=== PATIENT | male | born 1950 | race African-American/Black ===

== ENCOUNTER → 2016-07-17 | Outpatient (CLI) | payer OTHER | LOC: OD 17:03 | PROVIDERS: ATTEND Radiology Radiation Oncology | DX: C61 Malignant neoplasm of prostate (principal) | CPT/HCPCS: 36415; 84153 ==

== ENCOUNTER → 2017-01-17 | Outpatient (CLI) | payer OTHER | LOC: OD 12:46 | PROVIDERS: ATTEND Radiology Radiation Oncology | DX: C61 Malignant neoplasm of prostate (principal) | CPT/HCPCS: 36415; 84153 ==

== ENCOUNTER → 2018-01-15 | Outpatient (CLI) | payer OTHER | LOC: OD 13:39 | PROVIDERS: ATTEND Radiology Radiation Oncology | DX: C61 Malignant neoplasm of prostate (principal) | CPT/HCPCS: 36415; 84153 ==

== ENCOUNTER → 2019-02-02 | Outpatient (CLI) | payer OTHER, MEDICARE | LOC: OD 13:21 | PROVIDERS: ATTEND Radiology Radiation Oncology | DX: C61 Malignant neoplasm of prostate (principal) | CPT/HCPCS: 36415; 84153 ==

== ENCOUNTER → 2020-05-24 | Day surgery (SDC) | payer MEDICARE, OTHER ==
[~2020-05-24] MED LIST: BESIFLOXACIN HCL 0.6% OPH SUSP 5 ML BOTTLE OS PRN; CHONDR SU A NA/HYALUR INTRAOC KIT (SURGICARE) ONE; CYCLOPENTOLATE 0.2%/PHENYLEPHRINE 1% OPH SOLN 2 ML OS PRN; DORZOLAMIDE HCL 2%/TIMOLOL MALEAT 0.5% OPH SOLN 10 ML OS PRN; EPINEPHRINE INJ/PF 1 MG/1 ML AMPULE ONE; KETOROLAC TROMETHAMINE 0.45% 4 DROP/0.4 ML DROPERETTE OS PRN; LIDOCAINE 1%/PHENYLEPHRINE 1.5% 1 ML VIAL ONE; MIDAZOLAM 2 MG/2 ML INJ ONE; PREDNISOLONE ACETATE 1% OPH SUSP 5 ML OS PRN; TETRACAINE HCL 0.5% OPH SOLN 4 ML OS PRN; TROPICAMIDE 1% OPH SOLN 15 ML OS PRN
== END ==
LOC: SC 09:59
PROVIDERS: ATTEND Ophthalmology
DX: Z53.9 Procedure and treatment not carried out, unspecified reason (principal)
CPT/HCPCS: J0171; J2250; J3490